=== PATIENT | female | born 1945 | race Caucasian/White ===

== ENCOUNTER 2020-12-12 12:49 | Outpatient (CLI) | payer MEDICARE, BC ==
[~2020-12-12] VITALS: Ht 154.9 cm; Wt 134.0 kg
--- NOTE | 2020-12-12 15:12 | NUR ---
1450-STARTED PERIPHERAL IV TIMES THREE ATTEMPTS WITH 22G CATHETER, BAM INFUSION ON PUMP OVER ONE HOUR. 1505-98.5 TEMPORAL, 62, 95%,RR 18, 135/79
--- NOTE | 2020-12-12 17:10 | NUR ---
1555 INFUSION COMPLETED. VS REMAIN STABLE. PATIENT TOLERATED INFUSION WITHOUT PROBLEMS NOTED. LINE FLUSHED WITH SALINE 30 ML. 1650 IV REMOVED WITH CATH INTACT. PATIENT AMBULATED TO [facility] STAFF. REMAINS WITHOUT CO
== END 2020-12-12 16:55 | disposition home or self-care (01) ==
LOC: D.OPS 12:49
PROVIDERS: ATTEND Family Medicine
DX: Z23 Encounter for immunization (principal)